=== PATIENT | female | born 2000 | race Caucasian/White ===

== ENCOUNTER → 2022-03-13 13:53 | Outpatient (BNVA) | payer SELFPAY | PROVIDERS: Family Provider Pediatrics Adolescent Medicine; PCP Pediatrics Adolescent Medicine; Visit Provider Emergency Medicine | DX: Z20.2 Contact with and (suspected) exposure to infections with a predominantly sexual mode of transmission (principal) | CPT/HCPCS: 81000 ==

== ENCOUNTER → 2022-05-05 14:54 | Outpatient (BNVA) | payer OTHER, SELFPAY | PROVIDERS: Family Provider Pediatrics Adolescent Medicine; PCP Pediatrics Adolescent Medicine; Visit Provider Emergency Medicine | DX: Z20.2 Contact with and (suspected) exposure to infections with a predominantly sexual mode of transmission (principal); A64 Unspecified sexually transmitted disease | CPT/HCPCS: 87491; 87591 ==